=== PATIENT | female | born 1980 | race American Indian/Alaskan Native ===

== ENCOUNTER 2017-10-27 06:13 | Inpatient (IN) | payer BC, OTHER ==
[2017-10-27 06:47] VITALS: BMI 28.4
[2017-10-27] MEDS ORDERED: cefOXitin Sodium 1 GM in Sodium Chloride 0.9% 100 ML IVPB ONE (06:49)
[2017-10-27] MEDS: Lactated Ringer's 1,000 ML IV SCH ×2 (06:50→08:00)
[2017-10-27 07:18] LABS: BASO # 0.1 K/uL (0.0-0.2); BASO % 1.1 % (0.0-2.0); EOS % 0.5 % (0.0-4.0); HEMOGLOBIN 11.6 g/dL (12.0-16.0); LYMPH # 1.6 K/uL (1.0-4.3); LYMPH % 24.1 % (20.0-40.0); MEAN CELL VOLUME 89.3 fl (81.0-99.0); MEAN CORPUSCULAR HEMOGLOBIN 28.9 pg (27.0-31.0); MEAN CORPUSCULAR HGB CONC 32.4 g/dL (33.0-37.0); MEAN PLATELET VOLUME 8.3 fl (7.2-11.7); MONO # 0.5 K/uL (0.0-0.8); NEUT # 4.5 K/uL (1.8-7.0); NEUT % 67.3 % (50.0-75.0); NRBC % 0.1 % (0.0-0.0); RBC 4.01 Mil/uL (3.80-5.20); RED CELL DISTRIBUTION WIDTH 13.9 % (11.5-14.5); WHITE BLOOD COUNT 6.7 K/uL (4.8-10.8)
[2017-10-27] MEDS ORDERED: cefOXitin IV 1 gm in Dextrose 1 GM/50 ML BAG IVPB ONE (07:30)
--- NOTE | 2017-10-27 09:12 | OBADHP ---
Datetime: 10/27/2017 09:01 IP Chief Complaint Other: labor pains/prev C/S /fibroid uterus/ hx of cerclage Admit Comment, IP Provider: for repeat C/S and removal of cerclage Extremities - PN: Normal Abdomen - PN: Abnormal Breast - PN: Normal Lungs - PN: Normal Heart - PN: Normal Thyroid - PN: Normal Neurologic - PN: Normal HEENT - PN: Normal General - PN: Normal FHR - Baseline A Provider: 150 Membranes, Provider: Intact Contraction Comments Provider: irreg Comments, ACOG Physical Exam: abd soft NT,gravid old scar; cx with cerclage in place ext no calf ten derness Gestation - Est Wks by US: 39 wks Pool Provider: Negative IP Hx Assessment: The History has been Reviewed and is Current Vital Signs Provider: Reviewed IP Chief Complaint: Other NICHD Variability Prov Fetus A: Moderate 6-25bpm NICHD Accel Fetus A IP Provider: 10X10 NICHD Decel Fetus A IP Provider: None Dilatation, Provider: cerclage in place Genitourinary Exam: Abnormal DTRs - PN: Normal EGA AdmitDate IP: 39.2 IP Adm Impression: Term, intrauterine IP Admit Plan: Admit to unit; Initiate Section protocol
[2017-10-27] MEDS ORDERED: Morphine 1 mg/ml preservative-free Inj(Duramorph) ONE (09:28)
[2017-10-27] MEDS ORDERED: Sodium Chloride 0.9% 10 ML IV ONE (09:28)
[2017-10-27] MEDS ORDERED: ePHEDrine 50 mg/ml Inj ONE (09:28)
[2017-10-27] MEDS ORDERED: Cellulose Hemostat 2X3 Sheet ONE (10:44)
[2017-10-27] MEDS ORDERED: Oxycodone/Acetaminophen 5/325 mg Tab PO PRN (11:36)
--- NOTE | 2017-10-27 11:48 | OBDS ---
DELIVERY PERSONNEL Delivery Doctor: José Cervantes MD Scrub Nurse: Jenifer Nieto Elderly Caregiver: Juliet Dunlap RN Anesthetist: Dr. Oswald MATERNAL INFORMATION Delivery Anesthesia: Spinal Estimated Blood Loss (ml): 800 Maternal Complications: None Provider Comments: see surgeons dictated note LABOR SUMMARY EDC: 11/01/2017 00:00 No. Babies in Womb: 1 Attempted: No Labor Anesthesia: None LABOR INFORMATION Reason for Induction: Not Applicable Oxytocin: N/A Group B Beta Strep: Positive Steroids Given: None Reason Steroids Not Administered: Not Applicable MEMBRANES Membranes Rupture Method: Artificial Rupture of Membranes: 10/27/2017 10:26 Length of Rupture (hrs): 0.02 Amniotic Fluid Color: Clear Amniotic Fluid Amount: Small Amniotic Fluid Odor: Normal STAGES OF LABOR Stage 3 hrs: 0 Stage 3 min: 1 VAGINAL DELIVERY Episiotomy: None Laceration Extension: N/A Laceration Type: None Sponge Count Correct: Yes Sharps Count Correct: Yes Count Comment: count correct x3 CSECTION DELIVERY Primary Indication: Repeat Elective Other Primary Indication: fibroids Other Secondary Indication: cerclage in place CSection Urgency: Elective CSection Incidence: Repeat Labor: No Labor Elective: Elective CSection Incision: Lower Uterine Transverse Uterine Closure: Double-layer closure BABY A INFORMATION Delivery Date/Time: 10/27/2017 10:27 Method of Delivery: Born in Route : No : N/A Forceps: N/A Vacuum Extraction: N/A Shoulder Dystocia : No SHOULDER DYSTOCIA BABY A Infant Delivery Date/Time: 10/27/2017 10:27 PRESENTATION/POSITION BABY A Presentation: Cephalic Cephalic Presentation: Vertex Breech Presentation: N/A PLACENTA INFORMATION BABY A Placenta Delivery Time : 10/27/2017 10:28 Placenta Method of Delivery: Spontaneous Placenta Status: Delivered SCORES BABY A Heart Rate 1 min: >100 bpm Resp Effort 1 min: Good Cry Reflex Irritability 1 min: Cough or Sneeze or Pulls Away Muscle Tone 1 min: Active Motion Color 1 min: Body [place], Extremities Blue Resuscitation Effort 1 min: Tactile Stimulation SCORE 1 MIN: 9 Heart Rate 5 min: >100 bpm Resp Effort 5 min: Good Cry Reflex Irritability 5 min: Cough or Sneeze or Pulls Away Muscle Tone 5 min: Active Motion Color 5 min: Body [place], Extremities Blue Resuscitation Effort 5 min: Tactile Stimulation SCORE 5 MIN: 9 INFORMATION BABY A Gestational Age at Delivery: 39.0 Gestational Status: Term Infant Outcome : Liveborn Condition : Stable Infant Sex: Female IDENTIFICATION/MEDS BABY A ID Band Number: [id number] ID Band Location: Left Leg; Left Arm WEIGHT/LENGTH BABY A Birthweight (gms): 2965 Infant Weight (lb): 6 Weight (oz): 9 CORD INFORMATION BABY A No. Cord Vessels: 3 Nuchal Cord : N/A Cord Blood Taken: N/A Infant Suction: None ASSESSMENT BABY A Infant Complications: None Physical Findings at Delivery: Within Normal Limits Respirations: Appears Normal Analysis Manager/ALS Called : No Infant Care By: /Cintia Transferred To: Remains with Mother
[2017-10-27] MEDS ORDERED: Morphine 1 mg/ml preservative-free Inj(Duramorph) IT ONE (13:01)
[2017-10-27] MEDS ORDERED: Naloxone 0.4 mg/ml Inj (Adult) IVP PRN (13:01)
--- NOTE | 2017-10-27 16:08 | OBPN ---
Datetime: 10/27/2017 16:02 IP Progress Plan Other: CBC IP Progress Impression Other: dizzines IP Progress Plan: Continue present management IP Progress Note Comment: Called in to evaluate pt who felt dizzy, pt expressed no SOB, chest or leg pain Denies N/V; found pt awake alert w/o x3, NAD, vs BP 104/62; P78; pulse ox 96-100% fundus firm at umb Lockia normal for PP Ext venodyne in place no leg edema or calf tenderness Will get stat CBC b ut continue present management Vital Signs Provider: Reviewed Datetime: 10/27/2017 09:01 Pool Provider: Negative Membranes, Provider: Intact Contraction Comments Provider: irreg FHR - Baseline A Provider: 150 Gestation - Est Wks by US: 39 wks NICHD Accel Fetus A IP Provider: 10X10 NICHD Variability Prov Fetus A: Moderate 6-25bpm Dilatation, Provider: cerclage in place NICHD Decel Fetus A IP Provider: None
[2017-10-27 16:38] LABS: HEMOGLOBIN 10.5 g/dL (12.0-16.0); MEAN CELL VOLUME 89.8 fl (81.0-99.0); MEAN CORPUSCULAR HEMOGLOBIN 28.6 pg (27.0-31.0); MEAN CORPUSCULAR HGB CONC 31.9 g/dL (33.0-37.0); RBC 3.66 Mil/uL (3.80-5.20); RED CELL DISTRIBUTION WIDTH 13.8 % (11.5-14.5); WHITE BLOOD COUNT 12.6 K/uL (4.8-10.8)
[2017-10-27] MEDS ORDERED: cefOXitin IV 1 gm in Dextrose 1 GM/50 ML BAG IVPB SCH (17:00)
[2017-10-28] MEDS: cefOXitin IV 1 gm in Dextrose 1 GM/50 ML BAG IVPB SCH ×2 (03:40→13:14)
[2017-10-28] MEDS: Oxycodone/Acetaminophen 5/325 mg Tab PO PRN (04:59)
[2017-10-28 07:26] LABS: HEMOGLOBIN 9.4 g/dL (12.0-16.0); MEAN CELL VOLUME 88.4 fl (81.0-99.0); MEAN CORPUSCULAR HEMOGLOBIN 29.4 pg (27.0-31.0); MEAN CORPUSCULAR HGB CONC 33.3 g/dL (33.0-37.0); RBC 3.2 Mil/uL (3.80-5.20); RED CELL DISTRIBUTION WIDTH 13.8 % (11.5-14.5); WHITE BLOOD COUNT 12.1 K/uL (4.8-10.8)
--- NOTE | 2017-10-28 09:42 | OBPPN ---
Datetime: 10/28/2017 09:37 PP Pain Prov: Within normal limits PP Pain Prov comment: no SOB chest or leg pains PP Nausea Prov: Denies PP BM Prov: No PP Nausea Prov comment: no dizziness PP Breasts Prov: Normal PP Lungs Prov: Normal PP Abdomen/Uterus Prov: Abnormal PP Lochia Prov: Normal PP Vulva/Perineum Prov: Normal PP CVA Tenderness Prov: Normal PP Extremities Prov: Normal PP C/S Incision Prov: Normal PP Progress Prov: Normal PP Comments Phys Exam Prov: breast not engorged NT; abd not distended soft fundus firm at umb Dress ing intact no sign of active bleeding Ext no calf tenderness PP Impression Prov: Normal progression PP Plan Prov: Continue present management PP Progress Note Prov: stable CBC this am, increase diet and continue po care IP PP Procedures: None Vital Signs Provider PP: Reviewed
[2017-10-28] MEDS ORDERED: cefOXitin IV 1 gm in Dextrose 1 GM/50 ML BAG IVPB SCH (12:00)
[2017-10-29] MEDS ORDERED: Influenza Vaccine 18yr & older 0.5 ML/45 MCG SYR IM ONE (10:00)
--- NOTE | 2017-10-29 12:45 | OBPPN ---
Datetime: 10/29/2017 12:41 PP Pain Prov: Within normal limits PP Pain Prov comment: no SOB, chest or leg pains PP Nausea Prov: Denies PP Flatus Prov: Yes PP BM Prov: No PP Nausea Prov comment: no dizziness PP Breasts Prov: Normal PP Lungs Prov: Normal PP Abdomen/Uterus Prov: Abnormal PP Lochia Prov: Normal PP Vulva/Perineum Prov: Normal PP CVA Tenderness Prov: Normal PP Extremities Prov: Normal PP C/S Incision Prov: Normal PP Progress Prov: Normal PP Comments Phys Exam Prov: breast not engorged NT; abd soft nd, fundus firm at umb Incison clean and dry no suppt or discharge no active bleeding or sign of infection Ext no calf tenderness PP Impression Prov: Normal progression PP Plan Prov: Continue present management PP Progress Note Prov: dulcolax suppt this pm Continue PO and PP care IP PP Procedures: None Vital Signs Provider PP: Reviewed
[2017-10-29] MEDS: Oxycodone/Acetaminophen 5/325 mg Tab PO PRN (20:03)
--- NOTE | 2017-10-30 07:19 | OBPPN ---
Datetime: 10/30/2017 07:15 PP Pain Prov: Within normal limits PP Pain Prov comment: No SOB, chest or leg pains PP Nausea Prov: Denies PP Flatus Prov: Yes PP BM Prov: Yes PP Breasts Prov: Normal PP Lungs Prov: Normal PP Abdomen/Uterus Prov: Abnormal PP Lochia Prov: Normal PP Vulva/Perineum Prov: Normal PP CVA Tenderness Prov: Normal PP Extremities Prov: Normal PP C/S Incision Prov: Normal PP Progress Prov: Normal PP Comments Phys Exam Prov: breast not engorged, NT; abd soft ND, fundus firm Incision clean and dry prolene in place no active bleeding or sign of infection Ext no calf tenderness PP Impression Prov: Normal progression PP Plan Prov: Discharge PP Progress Note Prov: d/C home with instructions and folllow up office 1 wk IP PP Procedures: None Vital Signs Provider PP: Reviewed
--- NOTE | 2017-10-30 07:21 | OBDCSUM ---
Datetime: 10/30/2017 07:18 Discharged to, Provider: Home Follow up at, Provider: Bo Cervantes Disch Instr Activity: Bedrest; May be up to bathroom; May be up for meals; May Shower Disch Instr Diet: Regular Discharge Instructions, Provider: Routine instructions given Discharge Diagnosis, Provider: Term Delivered Follow up in weeks, Provider: 1 wk Disch Referrals: None Contraception discussed, Prov: Yes Disch Activity Restrictions: No exercising; No lifting; No driving; Minimize walking; Minimize stair -climbing; No sexual activity; Nothing in vagina - [place], tampons, douche Discharge Comment, Provider: rx Percocet given Continue PNC vit and iron Discharge Diagnosis Prov Other: fibroid uterus Incopent cx with cerclage removed Contraception after Delivery: Undecided
--- NOTE | 2017-10-30 08:49 | OP ---
PROCEDURE DATE: 10/27/2017 PREOPERATIVE DIAGNOSES: 1. at term. 2. Early labor. 3. Previous section. 4. Fibroid uterus. 5. 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 POSTOPERATIVE DIAGNOSES: 1. at term. 2. Early labor. 3. Previous section. 4. Fibroid uterus. 5. 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 PROCEDURE PERFORMED: 1. Repeat low-transverse segment section. 2. Removal of cervical cerclage under anesthesia. SURGEON: Enrique Cervantes MD [employer] SALES CONSULTANT: Dr. Ramirez, who was there for the entire duration of the case. Therapist Phys needed in positioning the patient, opening of the abdomen, delivery of the baby, and closure of the abdomen. ANESTHESIA USED: Spinal. ANESTHESIA ADMINISTERED BY: Dr. Ybarra. ESTIMATED BLOOD LOSS: 300 mL. DRAINS USED: None. REPLACEMENTS USED: None. FINDINGS: 1. Delivered a living baby girl, baby appears term, and baby cried spontaneously. Pediatrist in attendance. score of 9 and 9. 2. Amniotic fluid clear. 3. Placenta complete and intact. 4. Both tubes and ovaries within normal limits to inspection bilaterally. 5. Multiple large fibroids cm in the fundal anterior, intramural, and posterior aspect of the uterus. 6. Cervical cerclage in place, removed x2 in toto. DESCRIPTION OF PROCEDURE: The patient was taken to the operating room and placed on the operating table in a supine position. Following induction of spinal anesthesia, the patient was then in supine position. The abdomen was draped and prepped in a usual sterile manner after a Mills catheter has been inserted into the bladder was draining clear fluid. Venodyne boots are also being applied to both legs prior to draping and prepping the patient. After draping and prepping, the anesthesia tested and found to be well secured and a Pfannenstiel incision was then made using sharp dissection along the edges of the previous incision. The incision was then extended down to the subcutaneous tissue using sharp dissection. Hemostasis was obtained by means of electrocoagulation. The fascia was then identified, was then entered in the midline. The incision of the fascia was then extended laterally on each direction. At this moment, the rectus muscle was then identified, was then slit in the midline, and exposing the peritoneum. Peritoneal layer was then picked up using 2 Merary clamps, retracted superiorly, and then entered using sharp dissection. Upon entering the abdominal cavity, incision on the peritoneum was then extended superiorly and inferiorly under direct visualization. Following this, we then proceeded to identify the bladder, which was then retracted inferiorly using a Wolsey retractor. At this time, in the low transverse segment of the uterus, the incision was then made using sharp dissection. Upon entering the uterine cavity, clear fluid noted to be present. The incision was then extended laterally on each direction using bandage scissors. Using amnioscopy procedure, a living baby girl was then delivered. The baby was immediately and aggressively aspirated using the bulb suction. The baby cried spontaneously. The umbilicus was then doubly clamped, cut, and the baby handed to the pediatric personnel who was standing by. Samples of cord blood were then obtained and the placenta was then delivered complete and intact. The uterus was not able to be exteriorized secondary to large number of fibroids, some are being in posterior fundal, others one being intramural, largest fibroids about 6 to 8 cm in diameter. The uterine cavity was then thoroughly cleaned using moist lap pads and the uterine incision was then secured using multiple T-clamps. The uterus was massaged and contracted well and following this, we then proceeded to approximate the uterine incision using 0-Vicryl suture in a continuous interlocking manner. A second layer was also applied using 0-Vicryl suture in a continuous manner. Again, hemostasis checked and found to be well secured. Following this, the bladder flap was then approximated using 2-0 Vicryl in a continuous manner. Both tubes and ovaries appeared grossly within normal limits to inspection bilaterally. Free amniotic fluid and blood was evacuated from the pelvic cavity and the pelvic cavity was thoroughly irrigated using saline solution. All operative areas checked, hemostatically secured, and peritoneum was then closed using 0-Vicryl suture in a continuous manner. Rectus muscle was also approximated in the midline using 0-Vicryl suture in a continuous manner. Following this, we then proceeded to identify the fascia, was then approximated using 1-Vicryl suture in a continuous manner. Fascia was then checked and found to be free of defect. Subcutaneous tissue was then irrigated using saline solution and approximated using several interrupted 2-0 plain sutures. The skin was then approximated using a 3-0 Prolene in a subcuticular fashion. Steri-Strips were then applied. Dressing applied to the incision. At this time, the patient was then placed in the dorsal lithotomy position and speculum was then placed in the vagina and the cervix was then grasped using a ring forceps. Cervical cerclage x2 was present and was then grasped and cut and both cerclage removed in toto under direct visualization. At this time, we noticed that clear fluid was still present in the Mills bag. The patient tolerated the procedure well. There were no complications. Sponge, instrument, and needle counts were correct x3. Enrique Cervantes MD
[2017-10-30] MEDS ORDERED: Influenza Vaccine 18yr & older 0.5 ML/45 MCG SYR IM ONE (09:00)
[2017-10-30 16:55] VITALS: BP 119/75; PULSE 106; RESP 20; TEMP 97.7; O2SAT 99
== END 2017-10-30 12:15 | disposition home or self-care (01) | DRG 765 ==
LOC: H.EROB2 06:13 → H.L&D 06:46 → H.OB/GYN 16:20
PROVIDERS: ADMIT Specialist; ATTEND Specialist
PROC: 10D00Z1 Extraction of Products of Conception, Low, Open Approach (ICD-10-PCS; principal; 2017-10-27)
PROC: 0UCC0ZZ Extirpation of Matter from Cervix, Open Approach (ICD-10-PCS; 2017-10-27)
PROC: 4A1HXCZ Monitoring of Products of Conception, Cardiac Rate, External Approach (ICD-10-PCS; 2017-10-27)
DX: O34.219 Maternal care for unspecified type scar from previous cesarean delivery (principal); O34.33 Maternal care for cervical incompetence, third trimester; N85.8 Other specified noninflammatory disorders of uterus; O34.13 Maternal care for benign tumor of corpus uteri, third trimester; D25.1 Intramural leiomyoma of uterus; Z3A.39 39 weeks gestation of pregnancy; Z37.0 Single live birth